=== PATIENT | female | born 1960 | race Caucasian/White ===

== ENCOUNTER → 2016-12-31 | Outpatient (CLI) | payer BC ==
[~2016-12-31] MED LIST: ASPI81TA28 PO; BIOF500T PO; BIOTCAP2 PO; CHOL2000 PO; MULT-506 PO; OXYC-57 PO
== END | disposition home or self-care (01) ==
LOC: C.LAB 17:39
PROVIDERS: ATTEND Nurse Practitioner Adult Health
DX: N39.0 Urinary tract infection, site not specified (principal)

== ENCOUNTER → 2017-02-28 | Outpatient (CLI) | payer BC ==
--- NOTE | 2017-02-28 10:53 | DIAGNOSTIC IMAGING REPORT ---
[facility] CLINICAL HISTORY: R53.83 Fatigue dyspnea pain COMPARISON STUDY: 11/08/2014 FINDINGS: Increased fecal load throughout the colon. No significant obstructive change. No evidence for free air. IMPRESSION: Increased fecal load consistent with a component of fecal stasis. Electronically signed by: Ortiz Toledo M.D. 02/28/2017 10:52 AM Dictated Date/Time: 02/28/2017 10:51 AM
--- NOTE | 2017-02-28 10:59 | DIAGNOSTIC IMAGING REPORT ---
RIGHT SHOULDER 3 VIEWS HISTORY: Right shoulder pain. COMPARISON: None. FINDINGS: There is no fracture or dislocation. Soft tissues are unremarkable. The right clavicle is intact. Mild AC joint arthropathy. IMPRESSION: No fractures. Mild AC joint arthropathy. Electronically signed by: Ryne Dallas M.D. 02/28/2017 10:58 AM Dictated Date/Time: 02/28/2017 10:56 AM
[2017-02-28 12:07] LABS: BASO % 0.8 %; BASO ABS # 0.03 K/uL (0-0.2); COMPLETE YES; EOS % 2.5 %; HEMATOCRIT 41.6 % (37-47); LYMPH % 29.3 %; LYMPH ABS # 1.07 K/uL (1.2-3.4); MEAN CELL VOLUME 103.2 fL (80-100); MEAN CORPUSCULAR HGB CONC 32.9 g/dl (32-36); MONO % 7.9 %; NEUT % 59.5 %; PLATELET COUNT 231 K/uL (130-400); RED BLOOD COUNT 4.03 M/uL (4.2-5.4); WHITE BLOOD COUNT 3.65 K/uL (4.8-10.8)
[2017-02-28 12:30] LABS: BLOOD UREA NITROGEN 8 mg/dl (7-18); BUN/CREATININE RATIO 9.9 (10-20); C-REACTIVE PROTEIN < 0.29 mg/dl (0-0.29); CARBON DIOXIDE 28 mmol/L (21-32); CHLORIDE 108 mmol/L (98-107); CHOLESTEROL 165 mg/dl (0-200); CREATININE 0.77 mg/dl (0.60-1.20); GLUCOSE 93 mg/dl (70-99); POTASSIUM 4.3 mmol/L (3.5-5.1); SODIUM 142 mmol/L (136-145); TRIGLYCERIDES 54 mg/dl (0-150); VERY LOW DENSITY LIPOPROT CALC 11 mg/dl
[2017-02-28 12:33] LABS: CALCIUM 8.8 mg/dl (8.5-10.1)
[2017-02-28 12:40] LABS: CHOLESTEROL/HDL RATIO 2.5; HDL CHOLESTEROL 65 mg/dl; LDL CHOLESTEROL CALCULATED 89 mg/dl
[2017-02-28 13:08] LABS: ESTIMATED AVERAGE GLUCOSE 117 mg/dl; HA1C FLAG Normal (Normal)
--- NOTE | 2017-03-05 09:42 | CODING QUERY MEDICAL NECESSITY ---
SUPPORTING DIAGNOSIS NEEDED Umer Marquez, A supporting diagnosis is required for the test/procedure performed on this patient in order for us to be reimbursed by the patient's insurance. Please provide a supporting diagnosis for the following test/procedure listed below next to the test name along with your signature. *If there is no additional diagnosis for this patient that would support the following test/procedure please document that below next to the test/procedure. Test(s)/Procedure(s) that require a supporting diagnosis: * ([id number]) VITAMIN D ASSAY DIAGNOSIS: * ([id number]) B12 VITAMIN LEVEL DIAGNOSIS: * 23278 GLYCATED HEMOGLOBIN DIAGNOSIS: DATE OF SERVICE: 02/28/17 Provider Signature: Date: Thank you [facility] Information Management Once completed, please kindly fax back to [phone] For questions please call [phone]
[2017-03-05 20:45] LABS: ANTI-CENTROMERE AB <1.0 NEG AI (<1.0 NEG); ANTI-SS-A <1.0 NEG AI (<1.0 NEG); ANTI-SS-B <1.0 NEG AI (<1.0 NEG); DNA ds CRITHIDIA NEGATIVE (NEGATIVE); MICROSOMAL AB 2 IU/ML (<9); Sm Antibody <1.0 NEG AI (<1.0 NEG)
== END | disposition home or self-care (01) ==
LOC: C.RAD1850 10:08
PROVIDERS: ATTEND Nurse Practitioner
DX: R53.83 Other fatigue (principal); K59.09 Other constipation; M25.511 Pain in right shoulder

== ENCOUNTER → 2017-04-25 | Day surgery (SDC) | payer BC ==
[2017-04-17 11:41] VITALS: Ht 170.2 cm; Wt 63.6 kg
[2017-04-17 17:03] LABS: BASO % 0.6 %; BASO ABS # 0.03 K/uL (0-0.2); COMPLETE YES; EOS % 3.3 %; HEMATOCRIT 41.4 % (37-47); IG% 0.2 %; LYMPH % 34.8 %; LYMPH ABS # 1.79 K/uL (1.2-3.4); MEAN CELL VOLUME 102.2 fL (80-100); MEAN CORPUSCULAR HEMOGLOBIN 34.8 pg (25-34); MEAN CORPUSCULAR HGB CONC 34.1 g/dl (32-36); MEAN PLATELET VOLUME 10.4 fL (7.4-10.4); NEUT % 53.1 %; PLATELET COUNT 216 K/uL (130-400); RED BLOOD COUNT 4.05 M/uL (4.2-5.4); WHITE BLOOD COUNT 5.14 K/uL (4.8-10.8)
[2017-04-17 17:32] LABS: BUN/CREATININE RATIO 19.9 (10-20); CALCIUM 8.7 mg/dl (8.5-10.1); CREATININE 0.79 mg/dl (0.60-1.20); POTASSIUM 4.3 mmol/L (3.5-5.1)
[~2017-04-25] VITALS: Ht 170.2 cm; Wt 63.6 kg
[~2017-04-25] MED LIST changes: +ATROPINE SULFATE 0.1 MG/ML 5ML SYR IV PRN; +BUPIVACAINE 0.5 % 5 MG/1 ML PF 10ML VIAL ONE; +EpHEDrine SULFATE INJ 50 MG/ML AMP IV PRN; +FENTANYL CITRATE INJ 50 MCG/1 ML 2 ML VIAL IV PRN; +FENTANYL CITRATE INJ 50 MCG/1 ML 2 ML VIAL ONE; +HYDROmorphone INJ 1 MG/ML SYR IV PRN; +LACTATED RINGER'S 1000ML 1,000 ML IV SCH; +LACTATED RINGER'S 1000ML 500 ML IV SCH; +LIDOCAINE HCL 1% MPF 2 ML VIAL ONE; +METHYLPREDNISOLONE ACETATE 80 MG/ML VIAL ONE; +MIDAZOLAM HCL 1 MG/ML 2ML VIAL ONE; +ONDANSETRON INJ 2 MG/ML 2 ML VIAL IV PRN; +OXYCODONE/ACETAMINOPHEN 5-325 TAB PO PRN; +PROMETHAZINE HCL INJ 12.5 MG in SODIUM CHLORIDE 0.9% 50ML 50 ML IV PRN; +PROPOFOL IV EMULSION 10 MG/ML 20 ML VIAL IV ONE; +ROPIVACAINE 0.5% 5 MG/ML 30 ML VIAL ONE; +SODIUM CHLORIDE 0.9% 1000ML 1,000 ML IV SCH
--- NOTE | 2017-04-25 08:08 | History & Physical Bridge - SC ---
H&P Re-Evaluation Bridge Note: I have examined the patient, reviewed the History & Physical and in the interval since the performance of the History & Physical I have noted the following changes of clinical significance: No changes noted
--- NOTE | 2017-04-25 12:27 | Discharge Instructions-SurgCtr ---
Discharge Instructions Date of Service Apr 25, 2017. Visit Reason for Visit: Shoulder Pain, Adhesive Capsulitis Of Shoulder Discharge Discharge Diagnosis / Problem: SAME ABOVE Discharge Goals Goal(s): Decrease discomfort, Improve function Activity Recommendations Activity Limitations: as noted below Lifting Limitations: gradually increase as tolerated Exercise/Sports Limitations: gradually increase as tolerated Shower/Bathe: tomorrow Driving or Machine Use: resume 1 day after discharge Anesthesia . Post Anesthesia Instructions: If you have had General Anesthesia or IV Sedation: * Do not drive today. * Resume driving when surgeon permits. * Do not make important decisions or sign legal documents today. * Call surgeon for: 1. Temperature elevations greater than 101 degrees F. 2. Uncontrollable pain. 3. Excessive bleeding. 4. Persistent nausea and vomiting. 5. Medication intolerance (nausea, vomiting or rash). * For nausea and vomiting use only clear liquids such as: tea, soda, bouillon until nausea subsides, then gradually increase diet as tolerated. * If you have any concerns or questions, call your surgeon's office. If physician is unavailable and it is an emergency, call 911 or go to the nearest emergency room. . Instructions / Follow-Up Instructions / Follow-Up MEDICATIONS: * Resume previous medications unless instructed otherwise by your surgeon. * Always take pain medication on a full stomach or with food to avoid upset stomach. * Do not drink alcohol or drive while taking narcotics. * Ibuprofen or Tylenol may be taken if narcotic not needed. SPECIAL CARE INSTRUCTIONS: __ None _X_ Keep extremity elevated and iced x 48 hours; apply ice 20-30 minutes 8-10 times/day. May remove at night. _X_ Sling (REMOVE TOMORROW) __24 hrs/day __ Remove at night __ Shoulder Immobilizer __ 24 hrs/day __ Remove at night __ Dressing __ Maintain until seen in office, may shower with plastic over site __ Remove dressings in 24-48 hours and then may shower __ Cover incisions with band-aids after showering __ Do not remove steri-strips Call physician if chills or temperature rises above 102 degrees or pain unrelieved by prescribed pain medications at . . Diet Recommendations Home Diet: no limitations Fluid Restriction: None Pending Studies Studies pending at discharge: no Work Instructions Return To Work: 5 days (OR WHEN PAIN IS TOLERATED) Lifting Limitations: none Medical Emergencies . Who to Call and When: Medical Emergencies: If at any time you feel your situation is an emergency, please call 911 immediately. . Non-Emergent Contact Non-Emergency issues call your: Primary Care Provider Call Non-Emergent contact if: you have a fever, temperature is above 101.5 . . "Provider Documentation" section prepared by Kelvin Marion. .
[2017-04-25 12:39] VITALS: TEMP 36.7
[2017-04-25 13:26] VITALS: BP 139/84; O2SAT 100
--- NOTE | 2017-04-25 13:27 | Anesthesia Progress Nt - [facility] ---
Anesthesia Post Op Note Date & Time Apr 25, 2017 at 13:27 Vital Signs Pain Intensity: 0 Vital Signs Past 12 Hours Date Time Temp Pulse Resp B/P (MAP) Pulse Ox O2 Delivery O2 Flow Rate FiO2 04/25/17 13:14 60 14 133/83 (100) 100 Room Air 04/25/17 12:39 36.7 67 12 121/79 (93) 94 Room Air 04/25/17 12:17 71 10 99 04/25/17 12:17 71 04/25/17 12:16 137/86 04/25/17 12:13 70 21 99 04/25/17 12:13 70 04/25/17 12:12 68 04/25/17 12:12 67 5 99 04/25/17 12:11 129/85 04/25/17 12:07 65 5 100 04/25/17 12:07 64 04/25/17 12:06 119/77 04/25/17 12:05 69 4 96 04/25/17 12:05 70 04/25/17 12:01 125/79 04/25/17 12:00 70 04/25/17 12:00 70 0 100 04/25/17 11:57 122/90 04/25/17 11:55 68 0 96 04/25/17 11:55 71 04/25/17 11:50 72 04/25/17 11:50 71 0 97 04/25/17 10:59 36.7 80 16 124/89 (101) 99 Room Air Notes Mental Status: alert / awake / arousable, participated in evaluation Pt Amnestic to Procedure: Yes Nausea / Vomiting: adequately controlled Pain: adequately controlled Airway Patency, RR, SpO2: stable & adequate BP & HR: stable & adequate Hydration State: stable & adequate Anesthetic Complications: no major complications apparent
--- NOTE | 2017-04-25 15:31 | [facility] Post Operative Brief Note ---
Immediate Operative Summary Operative Date Apr 25, 2017. Pre-Operative Diagnosis Adhesive Capsulitis Right Shoulder Post-Operative Diagnosis Same Procedure(s) Performed Right Shoulder Manipulation Under Anesthesia Surgeon Dr. Perez Certified Wellness Program Coordinator Surgeon(s) None Estimated Blood Loss 0 Findings as above Specimens None Complication(s) None Disposition Recovery Room / PACU
--- NOTE | 2017-04-25 18:17 | OPERATIVE REPORT ---
DATE OF OPERATION: 04/25/2017 PREOPERATIVE DIAGNOSIS: Adhesive capsulitis of the right shoulder. POSTOPERATIVE DIAGNOSIS: Same. PROCEDURE: Manipulation under anesthesia of the right shoulder. SURGEON: Dr. Kirby Perez. FILM TESTS CHECKER: None. ANESTHESIA: General with a right interscalene nerve block. COMPLICATIONS: None. CONDITION: Stable to PACU. INDICATIONS: Yady is a pleasant 57-year-old female who presented to my office with pain and increased tightness of her right shoulder. Clinical examination was diagnostic for adhesive capsulitis of the right shoulder. After failing conservative treatment, she elected to undergo manipulation. DESCRIPTION OF PROCEDURE: On 04/25/2017, she arrived at [facility] for the above procedure. She was seen in the preoperative holding area and the operative extremity was identified and signed. She was given a right interscalene nerve block and taken back to the operating room, laid on the table in supine position and given a general anesthetic. A time-out was done and the patient and operative extremity was properly identified. On preoperative physical examination, she only had about 45 degrees of abduction and 30 degrees of external rotation. A gentle manipulation was then done under anesthesia and I was able to get full range of motion of her shoulder in abduction, internal and external rotation. The glenohumeral joint was then injected with 80 mg of Depo-Medrol and 5 mL Marcaine. She was then placed in an arm sling and taken to the postanesthesia care unit in stable condition. She tolerated the procedure well. I attest to the content of the Intraoperative Record and any orders documented therein. Any exception s are noted below.
== END | disposition home or self-care (01) ==
LOC: X.SURG 10:30
PROVIDERS: ATTEND Orthopaedic Surgery
DX: M75.01 Adhesive capsulitis of right shoulder (principal); I34.1 Nonrheumatic mitral (valve) prolapse; Z82.49 Family history of ischemic heart disease and other diseases of the circulatory system; Z83.3 Family history of diabetes mellitus

== ENCOUNTER → 2017-12-13 | Outpatient (CLI) | payer BC, OTHER ==
[~2017-12-13] MED LIST changes: -ATROPINE SULFATE 0.1 MG/ML 5ML SYR IV PRN; -BUPIVACAINE 0.5 % 5 MG/1 ML PF 10ML VIAL ONE; -EpHEDrine SULFATE INJ 50 MG/ML AMP IV PRN; -FENTANYL CITRATE INJ 50 MCG/1 ML 2 ML VIAL IV PRN; -FENTANYL CITRATE INJ 50 MCG/1 ML 2 ML VIAL ONE; -HYDROmorphone INJ 1 MG/ML SYR IV PRN; -LACTATED RINGER'S 1000ML 1,000 ML IV SCH; -LACTATED RINGER'S 1000ML 500 ML IV SCH; -LIDOCAINE HCL 1% MPF 2 ML VIAL ONE; -METHYLPREDNISOLONE ACETATE 80 MG/ML VIAL ONE; -MIDAZOLAM HCL 1 MG/ML 2ML VIAL ONE; -ONDANSETRON INJ 2 MG/ML 2 ML VIAL IV PRN; -OXYC-57 PO; -OXYCODONE/ACETAMINOPHEN 5-325 TAB PO PRN; -PROMETHAZINE HCL INJ 12.5 MG in SODIUM CHLORIDE 0.9% 50ML 50 ML IV PRN; -PROPOFOL IV EMULSION 10 MG/ML 20 ML VIAL IV ONE; -ROPIVACAINE 0.5% 5 MG/ML 30 ML VIAL ONE; -SODIUM CHLORIDE 0.9% 1000ML 1,000 ML IV SCH
--- NOTE | 2017-12-13 15:04 | MAMMOGRAPHY REPORT ---
BILATERAL DIGITAL DIAGNOSTIC MAMMOGRAM TOMOSYNTHESIS WITH CAD: 12/13/2017 CLINICAL HISTORY: The patient presents for routine annual mammography. She denies any palpable lumps or other breast complaints. TECHNIQUE: Breast tomosynthesis in addition to standard 2D mammography was performed. Current study was also evaluated with a Computer Aided Detection (CAD) system. Bilateral CC and MLO 2D and tomosyn thesis images were obtained. The tomosynthesis images were obtained of the implant displaced views o nly. COMPARISON: Comparison is made to exams dated: 12/13/2014 mammogram, 02/06/2013 mammogram - [facility], 09/21/2010 mammogram, 09/05/2010 mammogram - [facility], 02/22/2003 mammogram - [facility], and 03/28/2016 mammogram. BREAST COMPOSITION: The tissue of both breasts is heterogeneously dense, which may obscure small mas ses. FINDINGS: There are no suspicious masses, calcifications, or areas of architectural distortion noted in either breast. There has been no significant interval change mammographically compared to prior e xams. A few scattered bilateral benign-appearing calcifications are not significantly changed. Bila teral subpectoral saline implants are stable in appearance compared to prior exams. Benign capsular calcifications surrounding the left breast implant are again noted. IMPRESSION: ACR BI-RADS CATEGORY 2: BENIGN There is no mammographic evidence of malignancy in either breast. A 1 year screening mammogram is rec ommended. The patient has been verbally notified of the results. Approximately 10% of breast cancers are not detected with mammography. A negative mammographic report should not delay biopsy if a clinically suggestive mass is present. Chelsi Rodrigues M.D. /:12/13/2017 09:50:15 [employer]visor [employer] Department: Karen Tan, [facility] letter sent: Normal 09/17 BI-RADS Code: ACR BI-RADS Category 2: Benign
== END | disposition home or self-care (01) ==
LOC: C.MAMM 09:20
PROVIDERS: ATTEND Obstetrics & Gynecology
DX: Z12.31 Encounter for screening mammogram for malignant neoplasm of breast (principal); Z98.82 Breast implant status